=== PATIENT | male | born 1985 | race American Indian/Alaskan Native ===

== ENCOUNTER 2021-08-12 20:56 | Emergency (ER) | payer SELFPAY ==
[2021-08-12 21:52] VITALS: BP 140/75
[2021-08-13] MEDS ORDERED: IBUPROFEN 800 MG TAB PO ONE (02:15)
[2021-08-13] MEDS ORDERED: cephALEXin 500 MG CAP PO ONE (02:15)
--- NOTE | 2021-08-13 02:40 | Emergency Department Report ---
ED Lower Extremity HPI - General Chief Complaint: Extremity Injury, Lower Stated Complaint: TOE PAIN/SWELLING Time Seen by Provider: 08/13/21 02:14 Source: patient Mode of arrival: Ambulatory Limitations: No Limitations - History of Present Illness Initial Comments: Patient is 36-year-old male who presents with bilateral great toe onychomycosis. Patient states pain tenderness denies drainage or fever. Symptoms are acute on chronic. Has recurring episodes. Symptoms are generally controlled with soap and water and [id number] NSAIDs. Patient denies fevers or chills no rigors. Patient is amatory with no gait disturbance. Patient has secondary complaint of seasonal allergies. 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 Complaint: other - Related Data Previous Rx's Medication Instructions Recorded Last Taken Type Ibuprofen [Motrin 800 MG tab] 800 mg PO Q8HR PRN #30 tablet 08/13/21 Unknown Rx Terbinafine [LamiSIL At 1%] 1 applicatio TP BID 14 Days #1 tube 08/13/21 Unknown Rx cephALEXin [Keflex] 500 mg PO Q8HR 7 Days #21 cap 08/13/21 Unknown Rx Allergies Allergy/AdvReac Type Severity Reaction Status Date / Time No Known Allergies Allergy Verified 08/13/21 02:32 ED Review of Systems ROS: Stated complaint: TOE PAIN/SWELLING Other details as noted in HPI Constitutional: denies: chills, fever Eyes: denies: eye pain, eye discharge, vision change ENT: congestion. denies: ear pain, throat pain Respiratory: denies: cough, shortness of breath, wheezing Cardiovascular: denies: chest pain, palpitations Endocrine: no symptoms reported Gastrointestinal: denies: abdominal pain, nausea, diarrhea Genitourinary: denies: urgency, dysuria Musculoskeletal: denies: back pain, joint swelling, arthralgia Skin: denies: rash, lesions Neurological: denies: headache, weakness, paresthesias, vertigo Psychiatric: denies: anxiety, depression Hematological/Lymphatic: denies: easy bleeding, easy bruising ED Past Medical Hx - Medications Home Medications: Home Medications Medication Instructions Recorded Confirmed Last Taken Type Ibuprofen [Motrin 800 MG tab] 800 mg PO Q8HR PRN #30 tablet 08/13/21 Unknown Rx Terbinafine [LamiSIL At 1%] 1 applicatio TP BID 14 Days #1 tube 08/13/21 Unknown Rx cephALEXin [Keflex] 500 mg PO Q8HR 7 Days #21 cap 08/13/21 Unknown Rx ED Physical Exam - General Limitations: No Limitations General appearance: alert, in no apparent distress - Head Head exam: Present: normocephalic, normal inspection - Eye Eye exam: Present: PERRL, EOMI. Absent: conjunctival injection, nystagmus Pupils: Present: normal accommodation - ENT ENT exam: Present: mucous membranes moist, TM's normal bilaterally, normal external ear exam - Expanded ENT Exam Expanded Throat exam: Positive: tonsillar erythema, other (Clear postnasal drip, uvula midline elongated. There is no lesions no stridor. No exudate). Negative: tonsillomegaly, tonsillar exudate, R peritonsillar mass, L peritonsillar mass - Neck Neck exam: Present: normal inspection, full ROM. Absent: tenderness, lymphadenopathy, thyromegaly - Respiratory Respiratory exam: Present: normal lung sounds bilaterally. Absent: respiratory distress, wheezes, stridor, chest wall tenderness - Cardiovascular Cardiovascular Exam: Present: regular rate, normal rhythm, normal heart sounds. Absent: systolic murmur, diastolic murmur, rubs, gallop - GI/Abdominal GI/Abdominal exam: Present: soft, normal bowel sounds. Absent: distended, tenderness - Rectal Rectal exam: Present: deferred - Extremities Exam Extremities exam: Present: normal inspection, full ROM, tenderness (Bilateral great toe), normal capillary refill. Absent: pedal edema - Back Exam Back exam: Present: normal inspection, full ROM. Absent: CVA tenderness (R), CVA tenderness (L) - Neurological Exam Neurological exam: Present: alert, oriented X3, CN II-XII intact, normal gait - Expanded Neurological Exam Expanded Patient oriented to: Present: person, place, time Motor strength exam: RLE: 5, LLE: 5 Best Eye Response ([place]): (4) open spontaneously Best Motor Response ([place]): (6) obeys commands Best Verbal Response ([place]): (5) oriented [place] Total: 15 - Psychiatric Psychiatric exam: Present: normal affect, normal mood - Skin Skin exam: Present: warm, dry, intact, normal color ED Course Vital Signs 08/12/21 21:50 Temperature 98.3 F Pulse Rate 78 Respiratory 18 Rate Blood Pressure 140/75 [Left] O2 Sat by Pulse 98 Oximetry ED Lower Extremity MDM - Medical Decision Making This is a straightforward bilateral great toe onychomycosis . Symptoms are improved with medications given in ED. Patient will be DC'd with prescriptions, patient given referral to podiatry. Patient given referral to ENT as requested for seasonal allergies. Patient verbalized agreement and understanding with discharge plan. Patient DC to home in stable condition at this time. Critical care attestation.: If time is entered above; I have spent that time in minutes in the direct care of this critically ill patient, excluding procedure time. ED Disposition Clinical Impression: Tinea, Onychomycosis Cellulitis of toe Qualifiers: Laterality: unspecified laterality Qualified Code(s): L03.039 - Cellulitis of unspecified toe Disposition: HOME / SELF CARE / HOMELESS Is pt being admited?: No Does the pt Need Aspirin: No Condition: Stable Instructions: Cellulitis, Adult, Fungal Nail Infection Additional Instructions: Take medications as prescribed, follow-up with podiatry in 2 to 3 days. Return to emergency department should symptoms worsen. Prescriptions: cephALEXin [Keflex] 500 mg PO Q8HR 7 Days #21 cap Terbinafine [LamiSIL At 1%] 1 applicatio TP BID 14 Days #1 tube Ibuprofen [Motrin 800 MG tab] 800 mg PO Q8HR PRN #30 tablet PRN Reason: pain Referrals: ANIBAL CHILDRESS DPM [Staff Physician] - [facility] Forms: Work/School Release Form(ED) Time of Disposition: 02:48
[2021-08-13] MEDS ORDERED: FLUCONAZOLE 200 MG TAB PO SCH (10:00)
== END 2021-08-13 03:10 | disposition home or self-care (01) ==
LOC: ED 20:56
DX: B35.9 Dermatophytosis, unspecified (principal); B35.1 Tinea unguium; L03.032 Cellulitis of left toe; L03.031 Cellulitis of right toe
CPT/HCPCS: 99282